=== PATIENT | male | born 1980 | race Caucasian/White ===

== ENCOUNTER 2020-10-12 13:44 | Emergency (ER) | payer MEDICAID, OTHER ==
[~2020-10-12] VITALS: Ht 188 cm; Wt 95.0 kg
[~2020-10-12 13:44] MED LIST: ESCI10TA PO; FOLI1TAB16 PO; MULT-1179 PO; THI100T PO
[2020-10-12] MEDS ORDERED: ondansetron 4mg rapidly disintigrating tab PO ONE (14:20)
[2020-10-12] MEDS ORDERED: chlordiazePOXIDE 25mg capsule PO ONE (14:20)
[2020-10-12] MEDS ORDERED: LORazepam 2 mg/ml vial IV ONE ×2 (16:40→18:10)
[2020-10-12] MEDS ORDERED: normal saline 1000ml 1,000 ML IV ONE (16:40)
[2020-10-12 17:48] LABS: BASOPHILS % (AUTO) 0.4 % (0-1); EOSINOPHILS % (AUTO) 0.2 % (0-6); HEMATOCRIT 35.7 % (42.0-52.0); HEMOGLOBIN 12.1 g/dl (14.0-17.9); LYMPHOCYTES # (AUTO) 0.8 X10'3 (1.1-4.8); LYMPHOCYTES % (AUTO) 17.4 % (21-51); MEAN CORPUSCULAR HEMOGLOBIN 33.5 PG (27.0-31.0); MEAN CORPUSCULAR HGB CONC 33.9 g/dL (33.0-36.5); MEAN PLATELET VOLUME 8.2 FL (7.4-10.4); MONOCYTES # (AUTO) 0.7 X10'3 (0-0.9); MONOCYTES % (AUTO) 15.9 % (2-12); NEUTROPHILS # (AUTO) 3.1 X10'3 (1.8-7.7); NEUTROPHILS % (AUTO) 66.1 % (42-75); PLATELET COUNT 82 X10'3 (140-440); RED BLOOD COUNT 3.61 X10'6 (4.70-6.10); WHITE BLOOD COUNT 4.6 X10'3 (4.5-11.0)
[2020-10-12 17:57] LABS: ALANINE AMINOTRANSFERASE 167 U/L (12-78); ALBUMIN 3.1 G/DL (3.4-5.0); ALBUMIN/GLOBULIN RATIO 0.9 (1.1-1.5); ALKALINE PHOSPHATASE 131 IU/L (46-116); ANION GAP 14 (8-16); ASPARTATE AMINO TRANSFERASE 330 U/L (10-37); BILIRUBIN,TOTAL 2.7 MG/DL (0.1-1.0); CALCIUM 7.8 MG/DL (8.5-10.1); CHLORIDE 96 MMOL/L (99-107); ETHANOL < 0.010 GM/DL (0.0-0.010); GLUCOSE 92 MG/DL (70-104); POTASSIUM 3.4 MMOL/L (3.5-5.1); SODIUM 139 MMOL/L (135-145); TOTAL CARBON DIOXIDE 29.3 MMOL/L (24-32); TOTAL PROTEIN 6.5 G/DL (6.4-8.2)
[2020-10-12 18:00] LABS: MAGNESIUM 0.8 MG/DL (1.5-2.4)
[2020-10-12 18:07] LABS: BLOOD UREA NITROGEN 2 MG/DL (7-18); CREATININE 0.98 MG/DL (0.60-1.10); eGFR 84 ML/MIN
[2020-10-12] MEDS ORDERED: potassium Cl 20 mEq SR tablet PO STA (18:09)
[2020-10-12] MEDS ORDERED: levetiracetam inj 1,000 MG in normal saline 100ml IV soln 90 ML IV ONE ×2 (18:10→19:05)
[2020-10-12] MEDS ORDERED: magnesium 2GM in 50ml NS 50 ML IV ONE (18:10)
[2020-10-12] MEDS ORDERED: CHLO25CA10 PO (18:20)
[2020-10-12 19:51] VITALS: BP 146/85
== END 2020-10-12 19:56 | disposition home or self-care (01) ==
LOC: ER 13:45
DX: F10.139 Alcohol abuse with withdrawal, unspecified (principal); E83.42 Hypomagnesemia; Z79.899 Other long term (current) drug therapy; Y90.0 Blood alcohol level of less than 20 mg/100 ml
CPT/HCPCS: 80053; 80320; 83735; 85025; 96365; 96375; 96376; 99284; J1953; J2060; J3475; J7030

== ENCOUNTER 2022-09-14 12:45 | Emergency (ER) | payer MEDICAID ==
[~2022-09-14] VITALS: Ht 188 cm; Wt 86.4 kg
[~2022-09-14 12:45] MED LIST changes: +CHLO25CA10 PO; -FOLI1TAB16 PO; +FOLI1TAB27 PO
[2022-09-14 13:07] VITALS: BP 142/88; PULSE 97; RESP 18; O2SAT 99
[2022-09-14 17:45] LABS: BASOPHILS % (AUTO) 0.4 % (0-1); EOSINOPHILS # (AUTO) 0.1 X10'3 (0-0.9); EOSINOPHILS % (AUTO) 0.9 % (0-6); HEMATOCRIT 44.7 % (42.0-52.0); HEMOGLOBIN 15.3 g/dl (14.0-17.9); LYMPHOCYTES # (AUTO) 1.9 X10'3 (1.1-4.8); LYMPHOCYTES % (AUTO) 19.1 % (21-51); MEAN CORPUSCULAR HEMOGLOBIN 32.2 PG (27.0-31.0); MEAN CORPUSCULAR HGB CONC 34.3 g/dL (33.0-36.5); MEAN CORPUSCULAR VOLUME 94.1 FL (78-98); MEAN PLATELET VOLUME 8.2 FL (7.4-10.4); MONOCYTES # (AUTO) 1.1 X10'3 (0-0.9); MONOCYTES % (AUTO) 11.6 % (2-12); NEUTROPHILS # (AUTO) 6.6 X10'3 (1.8-7.7); PLATELET COUNT 163 X10'3 (140-440); RED BLOOD COUNT 4.74 X10'6 (4.70-6.10); RED CELL DISTRIBUTION WIDTH 13.6 % (11.5-14.5); WHITE BLOOD COUNT 9.7 X10'3 (4.5-11.0)
[2022-09-14 17:47] LABS: CLARITY,URINE SLIGHTLY CLOUDY (Clear); COLOR,URINE YELLOW (Yellow); GLUCOSE, URINE NEGATIVE (Neg); KETONES,URINE TRACE mg/dl (Neg); LEUKOCYTE ESTERASE ,URINE NEGATIVE (Neg); NITRITES, URINE NEGATIVE (Neg); OCCULT BLOOD,URINE NEGATIVE (Neg); PROTEIN,URINE TRACE mg/dl (Neg); UROBILINOGEN,URINE 0.2 E.U/dL (0.2-1.0)
[2022-09-14 18:02] LABS: ALANINE AMINOTRANSFERASE 106 U/L (12-78); ALBUMIN 4.3 G/DL (3.4-5.0); ALBUMIN/GLOBULIN RATIO 1.1 (1.1-1.5); ALKALINE PHOSPHATASE 86 IU/L (46-116); ANION GAP 11 (8-16); ASPARTATE AMINO TRANSFERASE 108 U/L (10-37); BLOOD UREA NITROGEN 21 MG/DL (7-18); BUN/CREATININE RATIO 20.6 (10.0-20.0); CALCIUM 10.1 MG/DL (8.5-10.1); CHLORIDE 93 MMOL/L (99-107); CREATININE 1.02 MG/DL (0.60-1.10); GLUCOSE 119 MG/DL (70-104); LIPASE 235 U/L (73-393); MAGNESIUM 1.8 MG/DL (1.5-2.4); SODIUM 134 MMOL/L (135-145); TOTAL CARBON DIOXIDE 29.9 MMOL/L (24-32); TOTAL PROTEIN 8.3 G/DL (6.4-8.2); eGFR 80 ML/MIN
[2022-09-14 18:06] LABS: URINE AMPHETAMINE SCREEN NEGATIVE (Neg); URINE BARBITUATE SCREEN NEGATIVE (Neg); URINE BENZODIAZEPINES SCREEN NEGATIVE (Neg); URINE CANNABINOID SCREEN NEGATIVE (Neg); URINE COCAINE SCREEN NEGATIVE (Neg); URINE METHADONE SCREEN NEGATIVE (Neg); URINE OPIATE SCREEN NEGATIVE (Neg); URINE PHENCYCLIDINE SCREEN NEGATIVE (Neg)
[2022-09-14 18:09] LABS: POTASSIUM 2.9 MMOL/L (3.5-5.1)
[2022-09-14 18:17] LABS: UA COLLECTION TYPE CLN CATCH MIDSTREAM
[2022-09-14] MEDS ORDERED: potassium Cl 20 mEq SR tablet PO STA (18:28)
[2022-09-14] MEDS ORDERED: GABA300C PO (18:30)
[2022-09-14] MEDS ORDERED: ONDA4TAB12 PO (18:30)
[2022-09-14] MEDS ORDERED: LORA-269 PO (18:30)
[2022-09-14 18:54] LABS: BACTERIA,URINE 2+ /HPF (Neg); CAL OXALATE CRYSTALS 1+ /HPF (NEGATIVE); MUCUS STRANDS FEW /LPF (Neg); SQUAMOUS EPITHELIAL CELL,UR MODERATE /LPF (FEW); TRANSITIONAL EPI CELLS,URINE FEW /HPF; YEAST FEW /HPF (NEGATIVE)
== END 2022-09-14 18:41 | disposition home or self-care (01) ==
LOC: ER 12:45
DX: F10.239 Alcohol dependence with withdrawal, unspecified (principal); F29 Unspecified psychosis not due to a substance or known physiological condition; Z88.0 Allergy status to penicillin; Z79.899 Other long term (current) drug therapy; Y90.9 Presence of alcohol in blood, level not specified
CPT/HCPCS: 36415; 80053; 80305; 81001; 82140; 83690; 83735; 85025; 87088; 99283

== ENCOUNTER 2024-01-12 08:04 | Emergency (ER) | payer MEDICAID ==
[~2024-01-12] VITALS: Ht 188 cm; Wt 119.1 kg
[~2024-01-12 08:04] MED LIST changes: +GABA300C PO; +LORA-269 PO; +ONDA-243 PO
[2024-01-12 08:06] VITALS: TEMP 98.4
[2024-01-12] MEDS: CefTRIAXone/D5W-Rocephin 1gm 50 ML IV ONE (09:31)
[2024-01-12] MEDS: TETanus/Pertussis (Acell)/Diphther VAC/PF (Tdap-Adult) 0.5ml syringe IMVAC ONE (09:32)
[2024-01-12 09:52] LABS: BASOPHILS % (AUTO) 0.1 % (0-1); EOSINOPHILS % (AUTO) 0.3 % (0-6); HEMATOCRIT 40.8 % (42.0-52.0); HEMOGLOBIN 13.9 g/dl (14.0-17.9); LYMPHOCYTES # (AUTO) 1.3 X10'3 (1.1-4.8); LYMPHOCYTES % (AUTO) 9.6 % (21-51); MEAN CORPUSCULAR HEMOGLOBIN 32.9 PG (27.0-31.0); MEAN CORPUSCULAR VOLUME 96.8 FL (78-98); MEAN PLATELET VOLUME 7.6 FL (7.4-10.4); MONOCYTES # (AUTO) 1.3 X10'3 (0-0.9); MONOCYTES % (AUTO) 9.6 % (2-12); NEUTROPHILS # (AUTO) 10.9 X10'3 (1.8-7.7); NEUTROPHILS % (AUTO) 80.4 % (42-75); PLATELET COUNT 281 X10'3 (140-440); RED BLOOD COUNT 4.21 X10'6 (4.70-6.10); RED CELL DISTRIBUTION WIDTH 13.5 % (11.5-14.5); WHITE BLOOD COUNT 13.5 X10'3 (4.5-11.0)
[2024-01-12 10:06] LABS: ALANINE AMINOTRANSFERASE 42 U/L (12-78); ALBUMIN 3.6 G/DL (3.4-5.0); ALBUMIN/GLOBULIN RATIO 0.8 (1.1-1.5); ALKALINE PHOSPHATASE 62 IU/L (46-116); ANION GAP 16 (8-16); ASPARTATE AMINO TRANSFERASE 36 U/L (10-37); BILIRUBIN,TOTAL 0.4 MG/DL (0.1-1.0); BLOOD UREA NITROGEN 14 MG/DL (7-18); BUN/CREATININE RATIO 12.5 (10.0-20.0); CALCIUM 9.2 MG/DL (8.5-10.1); CHLORIDE 103 MMOL/L (99-107); CREATININE 1.12 MG/DL (0.60-1.10); GLUCOSE 116 MG/DL (70-104); SODIUM 138 MMOL/L (135-145); TOTAL CARBON DIOXIDE 19.4 MMOL/L (24-32); TOTAL PROTEIN 8.1 G/DL (6.4-8.2); eCRCL 98 ML/MIN; eGFR 71 ML/MIN
[2024-01-12] MEDS: metroNIDAZOLE-Flagyl 500mg/NS 100 ML IV STA (10:06)
[2024-01-12] MEDS ORDERED: magnesium Cl slow-release 64mg tablet PO PRN (13:00)
[2024-01-12] MEDS ORDERED: acetaminophen 325mg tablet PO PRN (13:00)
[2024-01-12] MEDS ORDERED: magnesium sulf-water 2g/50mL 50 ML IV PRN (13:00)
[2024-01-12] MEDS ORDERED: magnesium sulf-water 4G/100mL 100 ML IV PRN (13:00)
[2024-01-12] MEDS ORDERED: potassium Cl 20 mEq SR tablet PO PRN ×2 (13:00)
[2024-01-12] MEDS ORDERED: ondansetron/PF 4mg/2ml inj IV PRN (13:00)
[2024-01-12] MEDS ORDERED: potassium Cl 40MEQ/1/2NS 520ml 520 ML IV PRN (13:00)
[2024-01-12] MEDS: normal saline 1000ml 1,000 ML IV SCH (14:08)
[2024-01-12] MEDS: morphine 2 MG/ML inj. syringe IV PRN (14:08)
[2024-01-12] MEDS: HYDROcodone/acetaminophen 5mg/325mg tablet PO PRN (16:18)
[2024-01-12] MEDS: LIDOcaine 1% 30ml preserv. free vial IJ STA (16:18)
[2024-01-12] MEDS ORDERED: AMOX-580 PO (16:21)
[2024-01-12] MEDS ORDERED: HYDR-3965 PO (16:21)
[2024-01-12] MEDS: morphine 4 MG/ML inj SYRINge IV ONE (16:21)
[2024-01-12] MEDS ORDERED: IBUP-1984 PO (16:21)
[2024-01-12 16:26] VITALS: BP 134/81; PULSE 84; RESP 16; O2SAT 98
[2024-01-12] MEDS ORDERED: K and/or MAG REPLACEMENT MC SCH (20:00)
== END 2024-01-12 16:28 | disposition home or self-care (01) ==
LOC: ER 08:04 → UNDOADMIN 13:21 → ED HOLD 13:21 → UNDODISIN 16:26
DX: L02.511 Cutaneous abscess of right hand (principal); M65.841 Other synovitis and tenosynovitis, right hand; Z88.0 Allergy status to penicillin
CPT/HCPCS: 26010; 36415; 73140; 80053; 85025; 90471; 90715; 96361; 96365; 96368; 96375; 99285; A6222; J0696; J2003; J2270; J3490; J7030; 96367; A6449; G0378

== ENCOUNTER 2024-01-17 13:17 | Inpatient (IN) | payer MEDICAID ==
[~2024-01-17] VITALS: Ht 218.4 cm; Wt 106.8 kg
[~2024-01-17 13:17] MED LIST changes: +AMOX-580 PO; +HYDR-3965 PO; +IBUP-1984 PO
[2024-01-17 15:51] LABS: BASOPHILS % (AUTO) 0.5 % (0-1); EOSINOPHILS # (AUTO) 0.1 X10'3 (0-0.9); EOSINOPHILS % (AUTO) 1.4 % (0-6); HEMATOCRIT 37.5 % (42.0-52.0); HEMOGLOBIN 12.9 g/dl (14.0-17.9); LYMPHOCYTES # (AUTO) 1.7 X10'3 (1.1-4.8); LYMPHOCYTES % (AUTO) 23.9 % (21-51); MEAN CORPUSCULAR HGB CONC 34.5 g/dL (33.0-36.5); MEAN CORPUSCULAR VOLUME 95.7 FL (78-98); MONOCYTES # (AUTO) 0.4 X10'3 (0-0.9); MONOCYTES % (AUTO) 5.4 % (2-12); NEUTROPHILS % (AUTO) 68.8 % (42-75); PLATELET COUNT 295 X10'3 (140-440); RED BLOOD COUNT 3.92 X10'6 (4.70-6.10); RED CELL DISTRIBUTION WIDTH 13.8 % (11.5-14.5); WHITE BLOOD COUNT 7.2 X10'3 (4.5-11.0)
[2024-01-17 16:21] LABS: ALANINE AMINOTRANSFERASE 21 U/L (12-78); ALBUMIN 3.4 G/DL (3.4-5.0); ALBUMIN/GLOBULIN RATIO 0.8 (1.1-1.5); ALKALINE PHOSPHATASE 50 IU/L (46-116); ANION GAP 8 (8-16); ASPARTATE AMINO TRANSFERASE 24 U/L (10-37); BILIRUBIN,TOTAL 0.2 MG/DL (0.1-1.0); BLOOD UREA NITROGEN 9 MG/DL (7-18); BUN/CREATININE RATIO 9.2 (10.0-20.0); CALCIUM 8.9 MG/DL (8.5-10.1); CHLORIDE 106 MMOL/L (99-107); CREATININE 0.98 MG/DL (0.60-1.10); GLUCOSE 83 MG/DL (70-104); MAGNESIUM 1.3 MG/DL (1.5-2.4); POTASSIUM 4.6 MMOL/L (3.5-5.1); SODIUM 142 MMOL/L (135-145); TOTAL CARBON DIOXIDE 27.8 MMOL/L (24-32); TOTAL PROTEIN 7.5 G/DL (6.4-8.2); eCRCL 112 ML/MIN; eGFR 83 ML/MIN
[2024-01-17] MEDS: ampicillin/sulbac 3gm/NS 100ml 100 ML IV ONE (16:42)
[2024-01-17] MEDS ORDERED: ondansetron/PF 4mg/2ml inj IV PRN (17:00)
[2024-01-17] MEDS ORDERED: potassium Cl 40MEQ/1/2NS 520ml 520 ML IV PRN (17:00)
[2024-01-17] MEDS ORDERED: magnesium Cl slow-release 64mg tablet PO PRN (17:00)
[2024-01-17] MEDS ORDERED: morphine 2 MG/ML inj. syringe IV PRN ×2 (17:00)
[2024-01-17] MEDS ORDERED: mag hydrox/Alum hydrox/simeth 30ml oral suspension PO PRN (17:00)
[2024-01-17] MEDS ORDERED: magnesium sulf-water 2g/50mL 50 ML IV PRN (17:00)
[2024-01-17] MEDS ORDERED: magnesium hydroxide 30ml (MOM) UD suspension PO PRN (17:00)
[2024-01-17] MEDS ORDERED: magnesium sulf-water 4G/100mL 100 ML IV PRN (17:00)
[2024-01-17] MEDS ORDERED: acetaminophen 325mg tablet PO PRN ×2 (17:00)
[2024-01-17] MEDS ORDERED: potassium Cl 20 mEq SR tablet PO PRN ×2 (17:00)
[2024-01-17] MEDS ORDERED: LORazepam 2 mg/ml vial IV PRN (17:15)
[2024-01-17] MEDS ORDERED: LORazepam 1 MG tablet PO PRN (17:15)
[2024-01-17] MEDS ORDERED: haloperidol 5mg tablet PO PRN (17:15)
[2024-01-17] MEDS ORDERED: haloperidol lactate 5mg/ml inj IM PRN (17:15)
[2024-01-17] MEDS: CEFEPIME 2gm in D5W 50mL 50 ML IV SCH (17:40)
[2024-01-17] MEDS: normal saline 1000ml 1,000 ML IV SCH (17:40)
[2024-01-17] MEDS: thiamine 100mg tablet PO SCH (17:40)
[2024-01-17] MEDS: folic acid 1mg tablet PO SCH (17:40)
[2024-01-17] MEDS: nicotine 14mg patch - 24hr TD ONE (17:48)
[2024-01-17 18:22] LABS: BILIRUBIN,URINE NEGATIVE (Neg); CLARITY,URINE CLEAR (Clear); GLUCOSE, URINE NEGATIVE (Neg); KETONES,URINE TRACE mg/dl (Neg); LEUKOCYTE ESTERASE ,URINE NEGATIVE (Neg); NITRITES, URINE NEGATIVE (Neg); OCCULT BLOOD,URINE NEGATIVE (Neg); PH,URINE 5.5 (4.8-8.0); PROTEIN,URINE NEGATIVE (Neg); UROBILINOGEN,URINE 0.2 E.U/dL (0.2-1.0)
[2024-01-17 18:27] LABS: COLOR,URINE DARK YELLOW (Yellow); UA COLLECTION TYPE URINAL
[2024-01-17] MEDS: HYDROcodone/acetaminophen 5mg/325mg tablet PO PRN (18:35)
[2024-01-17] MEDS: K and/or MAG REPLACEMENT MC SCH (20:00)
[2024-01-17] MEDS: docusate sod 100mg capsule PO SCH (20:00)
[2024-01-17] MEDS: heparin, porcine 5000 units/ml vial SQ SCH (20:00)
[2024-01-17] MEDS ORDERED: HYDR-3965 PO (20:18)
[2024-01-17] MEDS ORDERED: IBUP-2697 PO (20:18)
[2024-01-17] MEDS ORDERED: AMOX-117 PO (20:18)
[2024-01-17 20:55] VITALS: BP 146/84; PULSE 58; TEMP 94.9; O2SAT 98
[2024-01-17 21:00] VITALS: RESP 18; O2SAT 98
[2024-01-17] MEDS ORDERED: VANCOMYCIN 1GM 200ML H20 (PEG) 200 ML IV SCH (21:00)
[2024-01-17 22:00] VITALS: O2SAT 98
[2024-01-17] MEDS: HYDROcodone/acetaminophen 10/325mg tab PO PRN (23:22)
[2024-01-18] VITALS (7 sets, daily range): BP systolic 128–159; BP diastolic 67–85; PULSE 63–71; RESP 14–18; TEMP 97.5–98.7; O2SAT 96–98
[2024-01-18 04:59] LABS: BASOPHILS % (AUTO) 0.6 % (0-1); EOSINOPHILS # (AUTO) 0.2 X10'3 (0-0.9); EOSINOPHILS % (AUTO) 2.7 % (0-6); HEMOGLOBIN 11.6 g/dl (14.0-17.9); LYMPHOCYTES # (AUTO) 2.5 X10'3 (1.1-4.8); LYMPHOCYTES % (AUTO) 34.3 % (21-51); MEAN CORPUSCULAR HEMOGLOBIN 32.8 PG (27.0-31.0); MEAN CORPUSCULAR HGB CONC 34.1 g/dL (33.0-36.5); MEAN CORPUSCULAR VOLUME 96.1 FL (78-98); MONOCYTES # (AUTO) 0.6 X10'3 (0-0.9); NEUTROPHILS # (AUTO) 3.9 X10'3 (1.8-7.7); NEUTROPHILS % (AUTO) 54.4 % (42-75); PLATELET COUNT 270 X10'3 (140-440); RED BLOOD COUNT 3.54 X10'6 (4.70-6.10); RED CELL DISTRIBUTION WIDTH 13.8 % (11.5-14.5); WHITE BLOOD COUNT 7.2 X10'3 (4.5-11.0)
[2024-01-18] MEDS: VANCOMYCIN 1GM 200ML H20 (PEG) 200 ML IV SCH (05:05)
[2024-01-18 05:19] LABS: ALANINE AMINOTRANSFERASE 19 U/L (12-78); ALBUMIN 2.7 G/DL (3.4-5.0); ALBUMIN/GLOBULIN RATIO 0.8 (1.1-1.5); ALKALINE PHOSPHATASE 45 IU/L (46-116); ANION GAP 7 (8-16); ASPARTATE AMINO TRANSFERASE 20 U/L (10-37); BILIRUBIN,TOTAL 0.4 MG/DL (0.1-1.0); BLOOD UREA NITROGEN 9 MG/DL (7-18); BUN/CREATININE RATIO 12.2 (10.0-20.0); CALCIUM 8.7 MG/DL (8.5-10.1); CHLORIDE 105 MMOL/L (99-107); CREATININE 0.74 MG/DL (0.60-1.10); GLUCOSE 85 MG/DL (70-104); MAGNESIUM 1.5 MG/DL (1.5-2.4); POTASSIUM 4.3 MMOL/L (3.5-5.1); SODIUM 137 MMOL/L (135-145); TOTAL PROTEIN 6.2 G/DL (6.4-8.2); eCRCL 192 ML/MIN; eGFR > 90 ML/MIN
[2024-01-18] MEDS ORDERED: GADOTERATE MEGLUMINE 7.5 MMOL/15 ML VIAL IV ONE (11:00)
[2024-01-19] MEDS: VANCOMYCIN LEVEL IV ONE (04:30)
[2024-01-19 04:47] LABS: BASOPHILS # (AUTO) 0.1 X10'3 (0-0.2); EOSINOPHILS # (AUTO) 0.1 X10'3 (0-0.9); EOSINOPHILS % (AUTO) 2.4 % (0-6); HEMATOCRIT 34.1 % (42.0-52.0); HEMOGLOBIN 11.7 g/dl (14.0-17.9); LYMPHOCYTES # (AUTO) 1.7 X10'3 (1.1-4.8); LYMPHOCYTES % (AUTO) 31.3 % (21-51); MEAN CORPUSCULAR HEMOGLOBIN 32.6 PG (27.0-31.0); MEAN CORPUSCULAR HGB CONC 34.2 g/dL (33.0-36.5); MEAN CORPUSCULAR VOLUME 95.2 FL (78-98); MEAN PLATELET VOLUME 6.7 FL (7.4-10.4); MONOCYTES # (AUTO) 0.4 X10'3 (0-0.9); MONOCYTES % (AUTO) 7.7 % (2-12); NEUTROPHILS # (AUTO) 3.1 X10'3 (1.8-7.7); NEUTROPHILS % (AUTO) 57.6 % (42-75); PLATELET COUNT 240 X10'3 (140-440); RED BLOOD COUNT 3.59 X10'6 (4.70-6.10); RED CELL DISTRIBUTION WIDTH 13.7 % (11.5-14.5); WHITE BLOOD COUNT 5.3 X10'3 (4.5-11.0)
[2024-01-19 05:08] LABS: ALANINE AMINOTRANSFERASE 21 U/L (12-78); ALBUMIN 2.9 G/DL (3.4-5.0); ALBUMIN/GLOBULIN RATIO 0.8 (1.1-1.5); ALKALINE PHOSPHATASE 43 IU/L (46-116); ANION GAP 6 (8-16); ASPARTATE AMINO TRANSFERASE 23 U/L (10-37); BILIRUBIN,TOTAL 0.3 MG/DL (0.1-1.0); BLOOD UREA NITROGEN 9 MG/DL (7-18); BUN/CREATININE RATIO 10.7 (10.0-20.0); CALCIUM 8.7 MG/DL (8.5-10.1); CHLORIDE 105 MMOL/L (99-107); CREATININE 0.84 MG/DL (0.60-1.10); GLUCOSE 99 MG/DL (70-104); MAGNESIUM 1.5 MG/DL (1.5-2.4); POTASSIUM 4.1 MMOL/L (3.5-5.1); SODIUM 138 MMOL/L (135-145); TOTAL CARBON DIOXIDE 26.7 MMOL/L (24-32); TOTAL PROTEIN 6.6 G/DL (6.4-8.2); VANCOMYCIN,TROUGH 9.6 ug/mL (10.0-20.0); eCRCL 170 ML/MIN; eGFR > 90 ML/MIN
[2024-01-19 06:00] VITALS: BP 136/81; PULSE 72; RESP 17; TEMP 97.4; O2SAT 97
[2024-01-19] MEDS: losartan 50mg tablet PO SCH (07:49)
[2024-01-19 07:59] VITALS: RESP 18; O2SAT 96
[2024-01-19 10:00] VITALS: BP 136/81; PULSE 72; RESP 17; TEMP 97.4; O2SAT 97
[2024-01-19] MEDS: VANCOMYCIN/WATER FOR INJ (PEG) 1.25GM/250 ML IVPB IV SCH (13:05)
[2024-01-19 18:00] VITALS: BP 134/85; PULSE 59; RESP 16; TEMP 97.4; O2SAT 98
[2024-01-19 20:00] VITALS: RESP 16; O2SAT 98
[2024-01-19] MEDS: CefTRIAXone 2gm/D5W 50ml BAG 50 ML IV SCH (20:03)
[2024-01-19 22:00] VITALS: BP 163/99; PULSE 59; RESP 16; TEMP 98.7; O2SAT 96
[2024-01-20 03:20] LABS: BASOPHILS % (AUTO) 0.8 % (0-1); EOSINOPHILS # (AUTO) 0.1 X10'3 (0-0.9); HEMOGLOBIN 10.9 g/dl (14.0-17.9); LYMPHOCYTES # (AUTO) 1.8 X10'3 (1.1-4.8); LYMPHOCYTES % (AUTO) 29.5 % (21-51); MEAN CORPUSCULAR HEMOGLOBIN 33.1 PG (27.0-31.0); MEAN CORPUSCULAR HGB CONC 35.1 g/dL (33.0-36.5); MEAN CORPUSCULAR VOLUME 94.5 FL (78-98); MONOCYTES # (AUTO) 0.5 X10'3 (0-0.9); NEUTROPHILS # (AUTO) 3.6 X10'3 (1.8-7.7); NEUTROPHILS % (AUTO) 59.7 % (42-75); PLATELET COUNT 198 X10'3 (140-440); RED BLOOD COUNT 3.28 X10'6 (4.70-6.10); RED CELL DISTRIBUTION WIDTH 13.4 % (11.5-14.5)
[2024-01-20 03:36] LABS: ALANINE AMINOTRANSFERASE 25 U/L (12-78); ALBUMIN 2.6 G/DL (3.4-5.0); ALBUMIN/GLOBULIN RATIO 0.8 (1.1-1.5); ALKALINE PHOSPHATASE 45 IU/L (46-116); ANION GAP 8 (8-16); ASPARTATE AMINO TRANSFERASE 21 U/L (10-37); BILIRUBIN,TOTAL 0.2 MG/DL (0.1-1.0); BLOOD UREA NITROGEN 9 MG/DL (7-18); CALCIUM 7.8 MG/DL (8.5-10.1); CHLORIDE 108 MMOL/L (99-107); CREATININE 0.69 MG/DL (0.60-1.10); GLUCOSE 85 MG/DL (70-104); MAGNESIUM 1.5 MG/DL (1.5-2.4); POTASSIUM 3.6 MMOL/L (3.5-5.1); SODIUM 140 MMOL/L (135-145); TOTAL CARBON DIOXIDE 23.7 MMOL/L (24-32); eCRCL 206 ML/MIN; eGFR > 90 ML/MIN
[2024-01-20 06:00] VITALS: BP 137/74; PULSE 67; RESP 18; TEMP 97.8; O2SAT 96
[2024-01-20 09:38] VITALS: BP_SYST 137; PULSE 67
[2024-01-20] MEDS ORDERED: METR-159 PO (10:52)
[2024-01-20] MEDS ORDERED: ASPI81TA52 PO (10:55)
[2024-01-20] MEDS ORDERED: VANCOMYCIN LEVEL IV ONE (12:30)
== END 2024-01-20 12:00 | disposition home or self-care (01) | DRG 344 ==
LOC: ER 13:17 → ED HOLD 17:05 → EDBEDREQ 20:33 → SUR 3N 20:40
PROVIDERS: ADMIT Nurse Practitioner Family; ATTEND Nurse Practitioner Family
PROC: CP1 Nuclear Medicine, Musculoskeletal System, Planar Nuclear Medicine Imaging (ICD-10-PCS; principal; 2024-01-18)
PROC: 02HV33Z Insertion of Infusion Device into Superior Vena Cava, Percutaneous Approach (ICD-10-PCS; 2024-01-19)
DX: M86.8X4 Other osteomyelitis, hand (principal); D64.9 Anemia, unspecified; F17.210 Nicotine dependence, cigarettes, uncomplicated; F10.20 Alcohol dependence, uncomplicated; S61.252A Open bite of right middle finger without damage to nail, initial encounter; W50.3XXA Accidental bite by another person, initial encounter; L03.113 Cellulitis of right upper limb; Z88.0 Allergy status to penicillin; Z79.899 Other long term (current) drug therapy; Y93.89 Activity, other specified; Y92.89 Other specified places as the place of occurrence of the external cause; Y99.8 Other external cause status; L02.91 Cutaneous abscess, unspecified
CPT/HCPCS: 36415; 36569; 73130; 73218; 73220; 76942; 78315; 80053; 80202; 81003; 83605; 83735; 84145; 85025; 87040; 87081; 93005; 96365; 99285; A6209; A6223; A6258; A6446; A6449; A9503; A9575; C1751; G0378; J0295; J0692; J0696; J1644; J3372; J7030

== ENCOUNTER 2024-03-02 12:56 | Emergency (ER) | payer MEDICAID ==
[~2024-03-02] VITALS: Ht 182.9 cm; Wt 75.3 kg
[~2024-03-02 12:56] MED LIST changes: +AMOX-117 PO; -AMOX-580 PO; -CHLO25CA10 PO; -ESCI10TA PO; -FOLI1TAB27 PO; -GABA300C PO; -IBUP-1984 PO; +IBUP-2697 PO; -LORA-269 PO; +METR-159 PO; -MULT-1179 PO; -ONDA-243 PO; -THI100T PO
[2024-03-02 13:40] VITALS: BP 129/62; PULSE 68; RESP 16; TEMP 98.2; O2SAT 99
== END 2024-03-02 13:44 | disposition home or self-care (01) ==
LOC: ER 12:57
DX: Z45.2 Encounter for adjustment and management of vascular access device (principal); R73.03 Prediabetes; Z79.2 Long term (current) use of antibiotics; Z79.1 Long term (current) use of non-steroidal anti-inflammatories (NSAID)
CPT/HCPCS: 99281